=== PATIENT | male | born 1995 | race Caucasian/White ===

== ENCOUNTER 2017-05-27 22:41 | Emergency (ER) | payer BC, OTHER ==
[~2017-05-27] VITALS: Ht 170.2 cm; Wt 68.9 kg
[2017-05-27 22:41] VITALS: BP 150/78
[~2017-05-27 22:41] MED LIST: BACI1POW2 MC; GUAN1TAB9 PO; HUMAN GROWTH HORMONE; LISD20CA4 PO
--- NOTE | 2017-05-27 22:52 | ED.ADGEN ---
Past History Past Medical History: No Pertinent History Past Surgical History: No Surgical History Smoking: Non-smoker Alcohol Use: None Drug Use: None Adult General Chief Complaint Chief Complaint " ... I don't or can 't get a hard penis any more... I ve been playing with it a lot.. and it does not get as hard.... I did get it cut on a rock 2 yrs ago... and I was looking at it and it got a bump on it...I am worried I need Viagra... to have sex... because It does not get hard as fast ... I may want to have sex tonight... and I want a really hard penis..." HPI HPI Patient is a 22 year old male who presents with above hx and complaints possible erectile dysfunction from an injury received 2 years ago when he crushed his penis with rock. Patient demonstrates a videotape of his penile erection made before arrival to the emergency department. Patient does not appear to have any problems in achieving an erection. Patient is worried about dorsal penis vein. Patient denies any penile discharge, burning or problems with urination. Patient does awaken with morning erections. Patient is worried that after he masturbates, ejaculates he is then unable to obtain an erection again promptly. Patient circumcised male. Testicles non-tender. No discharge appreciated. Patient advised to reduce the amount of masturbation. Patient also encouraged that he take his bipolar, ADD, Anxiety and Autism spectrum disorder meds as directed. If he felt he still needed eval. for erectile dysfunction to follow up with Urology. Advised pt to practice safe sex. Findings discussed with mother at pt. request. Review of Systems Review of Systems Constitutional: Denies fever or chills [] Eyes: Denies change in visual acuity, redness, or eye pain [] HENT: Denies nasal congestion or sore throat [] Respiratory: Denies cough or shortness of breath [] Cardiovascular: No additional information not addressed in HPI [] GI: Denies abdominal pain, nausea, vomiting, bloody stools or diarrhea [] : Denies dysuria or hematuria []Complaints of fear of erectile dysfunction. Musculoskeletal: Denies back pain or joint pain [] Integument: Denies rash or skin lesions [] Neurologic: Denies headache, focal weakness or sensory changes [] Endocrine: Denies polyuria or polydipsia [] All other systems were reviewed and found to be within normal limits, except as documented in this note. Family History Family History Non-contributory Current Medications Current Medications See Nursing for home meds Allergies Allergies Allergies Coded Allergies Type Severity Reaction Last Updated Verified Penicillins Allergy Unknown 08/10/13 No Physical Exam Physical Exam Constitutional: Well developed, well nourished, no acute distress, non-toxic appearance. []Blue hair. HENT: Normocephalic, atraumatic, bilateral external ears normal, oropharynx moist, no oral exudates, nose normal. [] Eyes: PERRLA, EOMI, conjunctiva normal, no discharge. [] Neck: Normal range of motion, no tenderness, supple, no stridor. [] Cardiovascular:Heart rate regular rhythm, no murmur [] Lungs & Thorax: Bilateral breath sounds clear to auscultation [] Abdomen: Bowel sounds normal, soft, no tenderness, no masses, no pulsatile masses. [] Circumcision. Skin: Warm, dry, no erythema, no rash. [] Back: No tenderness, no CVA tenderness. [] Extremities: No tenderness, no cyanosis, no clubbing, ROM intact, no edema. [] Neurologic: Alert and oriented X 3, normal motor function, normal sensory function, no focal deficits noted. [] Psychologic: Affect anxious, judgement trouble focusing, distracted thoughts, mood normal. [] Current Patient Data Vital Signs Vital Signs Date Time Temp Pulse Resp B/P (MAP) Pulse Ox O2 Delivery O2 Flow Rate FiO2 05/27/17 22:41 99.2 55 18 93 Room Air Lab Results Laboratory Tests Test 05/27/17 23:00 Urine Collection Type Unknown Urine Color Yellow Urine Clarity Clear Urine pH 5.5 Urine Specific [place] >=1.030 Urine Protein 30 mg/dl (NEG-TRACE) Urine Glucose (UA) Neg mg/dL (NEG) Urine Ketones (Stick) 40 mg/dL (NEG) Urine Blood Neg (NEG) Urine Nitrite Neg (NEG) Urine Bilirubin Small (NEG) Urine Urobilinogen Dipstick 0.2 mg/dL (0.2 mg/dL) Urine Leukocyte Esterase Neg (NEG) Urine Opiates Screen Neg (NEG) Urine Methadone Screen Neg (NEG) Urine Barbiturates Neg (NEG) Urine Phencyclidine Screen Neg (NEG) Urine Amphetamine/Methamphetamine Pos (NEG) Urine Benzodiazepines Screen Neg (NEG) Urine Cocaine Screen Neg (NEG) Urine Cannabinoids Screen Neg (NEG) Urine Ethyl Alcohol Neg (NEG) EKG EKG [] Radiology/Procedures Radiology/Procedures [] Course & Med Decision Making Course & Med Decision Making Pertinent Labs and Imaging studies reviewed. (See chart for details). Avoid excessive masturbation. Must allow time to recuperate. If still concerned about erectile dysfunction follow-up with urology.. Instructed on safe sex. [] Final Impression Final Impression 1. Concerns about erectile dysfunction[] Problems: Dragon Disclaimer Dragon Disclaimer This electronic medical record was generated, in whole or in part, using a voice recognition dictation system. VIBHA FRAZIER MD May 27, 2017 22:52
[2017-05-27 23:20] LABS: BILIRUBIN,URINE SMALL (NEG); CLARITY,URINE CLEAR; COLOR,URINE YELLOW; GLUCOSE,URINE NEG (NEG); NITRITE,URINE NEG (NEG); UROBILINOGEN,URINE 0.2 mg/dL (0.2 mg/dL)
[2017-05-27 23:25] LABS: AMPHETAMINE/METHAMPHETAMINE POS (NEG); BARBITURATES NEG (NEG); BENZODIAZEPINES NEG (NEG); CANNABINOIDS NEG (NEG); COCAINE NEG (NEG); METHADONE NEG (NEG); OPIATES NEG (NEG); PHENCYCLIDINE NEG (NEG)
== END 2017-05-27 23:40 | disposition home or self-care (01) ==
LOC: ER 22:41
DX: N52.9 Male erectile dysfunction, unspecified (principal); Z88.0 Allergy status to penicillin
CPT/HCPCS: 36415; 80307; 81003; 99284; G0479